=== PATIENT | male | born 1950 | race Caucasian/White ===

== ENCOUNTER 2021-03-15 15:27 | Outpatient (CLI) | payer MEDICARE, BC | END 2021-03-15 15:28 | disposition home or self-care (01) | LOC: COV 15:27 | PROVIDERS: ATTEND Specialist | DX: Z01.812 Encounter for preprocedural laboratory examination (principal); Z20.822 Contact with and (suspected) exposure to COVID-19 ==

== ENCOUNTER 2021-05-11 09:28 | Day surgery (SDC) | payer MEDICARE, BC ==
[2021-05-11] MEDS ORDERED: CEFAZOLIN SODIUM IN 0.9 % NACL 2 GM/100 ML BAG IV ONE (09:30)
[2021-05-11] MEDS ORDERED: LACTATED RINGERS 1,000 ML IV ONE ×2 (09:58→13:50)
[2021-05-11] MEDS ORDERED: BUPIVACAINE 0.25% PF 30 ML VIAL ONE (10:24)
--- NOTE | 2021-05-11 11:03 | ANESTHESIA ---
Pre-Anesthesia VS, & Labs - Diagnosis right inguinal hernia - Procedure right inguinal hernia repair with mesh Vital Signs: Temp Pulse Resp BP Pulse Ox 36.6 C 65 18 118/67 100 05/11/21 09:49 05/11/21 09:49 05/11/21 09:49 05/11/21 09:49 05/11/21 09:49 Height: 5 ft 10 in Weight (kg): 72.2 kg Body Mass Index: 22.8 BMI Classification: Healthy weight - NPO >8 hours Home Medications and Allergies Allergies/Adverse Reactions: Allergies Allergy/AdvReac Type Severity Reaction Status Date / Time No Known Drug Allergies Allergy Verified 05/11/21 09:53 Anes History & Medical History - Anesthetic History Anesthesia Complications: reports: No previous complications - Medical History Cardiovascular: reports: None Pulmonary: reports: None Gastrointestinal: reports: Colon polyps Urinary: reports: None Musculoskeletal: reports: Chronic back pain Endocrine/Autoimmune: reports: None Skin: reports: None Smoking Status: Light tobacco smoker Psychosocial: reports: Alcohol (wine per day) History of Cancer?: No - Surgical History General: reports: Colonoscopy Eyes Ears Nose Throat (EENT): reports: Tonsil/Adenoidectomy Exam General: Alert Dental: WNL Plan Anesthesia Type: MAC, Total IV Consent for Procedure(s) Verified and Reviewed: Yes Code Status: Attempt Resuscitation ASA classification: 1-Healthy patient Is this case an emergency?: No
[2021-05-11] MEDS ORDERED: PROPOFOL 500 MG/50 ML 500 MG/50 ML VIAL ONE (12:14)
--- NOTE | 2021-05-11 12:29 | ANESTHESIA POST OP EVALUATION ---
Anesthesia Post Eval - Post Anesthesia Eval Vitals: Last Vital Signs Temp 36.6 C 05/11/21 09:49 Pulse 65 05/11/21 09:49 Resp 18 05/11/21 09:49 BP 118/67 05/11/21 09:49 Pulse Ox 100 05/11/21 09:49 CV Function Including HR & BP: Stable Pain Control: Satisfactory Nausea & Vomiting: Negative Mental Status: Baseline Respiratory Status: Airway Patent Hydration Status: Satisfactory Anesthesia Complications: None
[2021-05-11] MEDS ORDERED: MIDAZOLAM 2 MG/2 ML VIAL ONE (12:49)
[2021-05-11] MEDS ORDERED: LIDOCAINE 1% 50 ML MDV ONE (12:53)
[2021-05-11] MEDS ORDERED: BUPIVACAINE 0.25% PF 30 ML VIAL SUBQ ONE (13:00)
[2021-05-11] MEDS ORDERED: LIDOCAINE 1% 50 ML MDV SUBQ ONE (13:01)
[2021-05-11] MEDS ORDERED: KETOROLAC 15 MG/ML VIAL ONE (14:06)
[2021-05-11] MEDS ORDERED: oxyCODONE 5 MG TABLET ONE (14:07)
[2021-05-11 14:13] VITALS: BP 120/76
[2021-05-11] MEDS ORDERED: oxyCODONE 5 MG TABLET PO PRN (14:16)
[2021-05-11] MEDS ORDERED: KETOROLAC 15 MG/ML VIAL IVP PRN (14:16)
[2021-05-11] MEDS ORDERED: ACETAMINOPHEN 325 MG TABLET PO PRN (14:16)
--- NOTE | 2021-05-11 15:49 | OPERATIVE REPORT ---
Operative Report - General Planned Procedure: open right inguinal hernia repair without mesh Pre-Op Diagnosis: right inguinal hernia Procedure Performed: open right inguinal hernia repair without mesh Post Op Diagnosis: right inguinal hernia - Procedure Note Primary Surgeon: andrew woods Anesthesia Technique: Local, MAC Pathology: not sent Estimated Blood Loss (mL): 0 Drain/Tube Type: Other (none) Indications: painful hernia bulge Findings: indirect inguinal hernia Complications: none - Other Other Information/Narrative: The patient was properly identified brought to the operating room and placed in supine position. Monitored anesthesia care and IV sedation was given. He was prepped and draped in a sterile fashion and given preoperative antibiotics. Local anesthetic was given throughout the procedure. A 5 cm incision was made right inguinal area. Dissection proceeded with cutting current cautery. The superficial epigastric vein was identified clamped divided and tied with 3-0 Vicryl. Dissection proceeded down to the aponeurosis. This was opened and in the direction of its fibers extending to the external ring. The ilioinguinal nerve was kept with the cord structures. The cord structures were mobilized and brought up. An indirect inguinal hernia was identified and from the cord structures. It was suture ligated with a 2-0 silk. Adipose tissue was mobilized away from the cord structures clamped divided and tied with 2-0 silk. The patient did not want or would not except a mesh hernia repair. A Bassini type repair was performed. Multiple interrupted 0 Ethibond sutures were placed from the shelving border of Poupart's ligament to the conjoined tendon area. The aponeurosis was then closed with a running 2-0 Vicryl suture. Lucinda's was closed with interrupted 3-0 Vicryl suture. Buried interrupted subdermal 3-0 Vicryl sutures were then placed. Skin was closed with a running 4-0 Monocryl subcuticular suture. Dressing was applied. He tolerated the procedure well.
--- NOTE | 2021-05-11 18:09 | ANESTHESIA POST OP EVALUATION ---
Anesthesia Post Eval - Post Anesthesia Eval Vitals: Last Vital Signs Temp 37 C 05/11/21 13:50 Pulse 67 05/11/21 14:10 Resp 14 05/11/21 14:10 BP 120/76 05/11/21 14:10 Pulse Ox 99 05/11/21 14:10 CV Function Including HR & BP: Stable Pain Control: Satisfactory Nausea & Vomiting: Negative Mental Status: Baseline Respiratory Status: Airway Patent Hydration Status: Satisfactory Anesthesia Complications: None
== END 2021-05-11 09:29 | disposition home or self-care (01) ==
LOC: SDS 09:28
PROVIDERS: ATTEND Surgery
DX: K40.90 Unilateral inguinal hernia, without obstruction or gangrene, not specified as recurrent (principal); F17.200 Nicotine dependence, unspecified, uncomplicated
CPT/HCPCS: 49505; A9270; J0690; J7120

== ENCOUNTER 2021-05-20 09:13 | Outpatient (CLI) | payer MEDICARE, BC ==
[2021-05-20 09:55] LABS: BASOPHILS % (AUTO) 0.6 %; EOSINOPHILS # (AUTO) 0.1 10^3/uL (0.0-0.7); EOSINOPHILS % (AUTO) 1.8 %; HCT - HEMATOCRIT 44.7 % (42.0-52.0); HGB - HEMOGLOBIN 15.4 g/dL (14.0-18.0); LYMPHOCYTES # (AUTO) 1.8 10^3/uL (1.5-3.5); LYMPHOCYTES % (AUTO) 36.8 %; MEAN CORPUSCULAR HEMOGLOBIN 34.5 pg (27.0-31.0); MEAN CORPUSCULAR HGB CONC 34.5 g/dL (32.0-36.0); MEAN PLATELET VOLUME 9.2 fL (7.4-11.4); MONOCYTES # (AUTO) 0.5 10^3/uL (0.0-1.0); MONOCYTES % (AUTO) 9.9 %; NEUTROPHILS # (AUTO) 2.5 10^3/uL (1.5-6.6); NEUTROPHILS % (AUTO) 50.7 %; PLT - PLATELET COUNT 255 10^3/uL (130-450); RED BLOOD COUNT 4.47 10^6/uL (4.70-6.10); RED CELL DISTRIBUTION WIDTH 11.9 % (12.0-15.0); WHITE BLOOD COUNT 4.9 x10^3/uL (4.8-10.8)
[2021-05-20 09:58] LABS: ALBUMIN 4.6 g/dL (3.2-5.5); ALBUMIN/GLOBULIN RATIO 1.8 (1.0-2.2); BILIRUBIN,TOTAL 1.2 mg/dL (0.2-1.0); CALCIUM 9.2 mg/dL (8.5-10.3); CREATININE 0.9 mg/dL (0.6-1.2); POTASSIUM 4.3 mmol/L (3.5-5.0); TOTAL PROTEIN 7.2 g/dL (6.7-8.2)
== END 2021-05-20 09:14 | disposition home or self-care (01) ==
LOC: LAB 09:13
PROVIDERS: ATTEND Surgery
DX: K40.90 Unilateral inguinal hernia, without obstruction or gangrene, not specified as recurrent (principal)
CPT/HCPCS: 36415; 80053; 85025

== ENCOUNTER 2021-09-16 10:08 | Outpatient (CLI) | payer MEDICARE, BC ==
--- NOTE | 2021-09-16 17:09 | XRAY Report ---
PROCEDURE: Lumbar Spine 2 View INDICATIONS: LOW BACK PAIN TECHNIQUE: 2 views of the lumbar spine were acquired. COMPARISON: None. FINDINGS: Bones: 5 [id number] vertebrae are present. There is normal bony alignment. No vertebral body compression fractures. No suspicious bony lesions. Moderate L4-L5 degenerative disc disease. Mild L1 -L2, L2-L3, L3-L4 and L5-S1 degenerative disc disease. Moderate L5-S1 facet arthropathy. Mild L4-5 fa cet arthropathy. Soft tissues: Overlying bowel gas pattern is normal. No suspicious soft tissue calcifications. IMPRESSION: 1. Multilevel degenerative disc disease. 2. Multilevel facet arthropathy. 3. No fracture. No acute osseous lesion. If there is continued clinical concern for pathology, then M RI should be considered for further evaluation. Reviewed by: Alida Goetz MD, PhD on 09/16/2021 5:08 PM PST Approved by: Alida Goetz MD, PhD on 09/16/2021 5:08 PM PST Station ID: [id number]
--- NOTE | 2021-09-16 17:10 | XRAY Report ---
PROCEDURE: Thoracic Spine 2 View INDICATIONS: LOW BACK PAIN TECHNIQUE: 3 views of the thoracic spine were acquired. COMPARISON: None. FINDINGS: Bones: No fractures or dislocations. No suspicious bony lesions. 12 pairs of ribs are noted, and a ppear intact where visualized. Degenerative disc changes noted throughout the thoracic spine. Soft tissues: No paravertebral stripe thickening. IMPRESSION: Multilevel degenerative disc disease. 2. No fracture. No acute osseous lesion. If there is continued clinical concern for pathology, then M RI should be considered for further evaluation. Reviewed by: Alida Goetz MD, PhD on 09/16/2021 5:08 PM PST Approved by: Alida Goetz MD, PhD on 09/16/2021 5:08 PM PST Station ID: [id number]
== END 2021-09-16 10:09 | disposition home or self-care (01) ==
LOC: DI 10:08
PROVIDERS: ATTEND Student in an Organized Health Care Education/Training Program
DX: M47.816 Spondylosis without myelopathy or radiculopathy, lumbar region (principal); M47.817 Spondylosis without myelopathy or radiculopathy, lumbosacral region; M51.36 Other intervertebral disc degeneration, lumbar region; M51.37 Other intervertebral disc degeneration, lumbosacral region; M51.34 Other intervertebral disc degeneration, thoracic region

== ENCOUNTER 2023-01-01 17:43 | Inpatient (IN) | payer MEDICARE, BC ==
[2023-01-01 18:13] LABS: BASOPHILS # (AUTO) 0.1 10^3/uL (0.0-0.1); BASOPHILS % (AUTO) 0.4 %; EOSINOPHILS % (AUTO) 0.1 %; HCT - HEMATOCRIT 41.4 % (42.0-52.0); HGB - HEMOGLOBIN 14.7 g/dL (14.0-18.0); LYMPHOCYTES # (AUTO) 1.2 10^3/uL (1.5-3.5); LYMPHOCYTES % (AUTO) 8.3 %; MEAN CORPUSCULAR HEMOGLOBIN 34.7 pg (27.0-31.0); MEAN CORPUSCULAR HGB CONC 35.5 g/dL (32.0-36.0); MEAN CORPUSCULAR VOLUME 97.6 fL (80.0-94.0); MEAN PLATELET VOLUME 9.8 fL (7.4-11.4); MONOCYTES # (AUTO) 0.9 10^3/uL (0.0-1.0); MONOCYTES % (AUTO) 6.5 %; NEUTROPHILS % (AUTO) 84.3 %; PLT - PLATELET COUNT 193 10^3/uL (130-450); RED BLOOD COUNT 4.24 10^6/uL (4.70-6.10); WHITE BLOOD COUNT 14.2 x10^3/uL (4.8-10.8)
[2023-01-01] MEDS ORDERED: HYDROmorphone 1 MG/ML CARPUJECT IVP STA (18:17)
--- NOTE | 2023-01-01 18:18 | ED Physician Documentation ---
PD HPI ABD PAIN - Stated complaint Stated Complaint: ABD PX - Chief complaint Chief Complaint: Abd Pain - History obtained from History obtained from: Patient - Additional information Additional information: 72-year-old gentleman with history of right inguinal hernia repair remotely presents with abdominal pain. Started periumbilical last night and progressed to right lower quadrant. He has vomited once. He has no appetite. Has not had anything to eat or drink today. Sent from the walk-in clinic for concern for appendicitis. PD PAST MEDICAL HISTORY - Past Medical History Past Medical History: Yes Cardiovascular: None Respiratory: None Neuro: None Endocrine/Autoimmune: None GI: Colon polyps : None HEENT: None Psych: None Musculoskeletal: Chronic back pain Derm: None - Past Surgical History Past Surgical History: Yes General: Colonoscopy HEENT: Tonsil/Adenoidectomy - Present Medications Home Medications: Ambulatory Orders Medication Instructions Recorded Confirmed No Known Home Medications 01/01/23 01/01/23 - Allergies Allergies/Adverse Reactions: Allergies Allergy/AdvReac Type Severity Reaction Status Date / Time No Known Drug Allergies Allergy Verified 01/01/23 17:56 - Social History Does the pt smoke?: Yes Smoking Status: Light tobacco smoker - Immunizations Immunizations are current?: Yes PD ED PE NORMAL - Vitals Vital signs reviewed: Yes - General General: Alert and oriented X 3, No acute distress - Abdomen Abdomen: Normal bowel sounds, Soft, Other (Exquisitely tender in the right lower quadrant with positive Rovsing sign. No hernia mass. He does have rebound tenderness.) - Neuro Neuro: Alert and oriented X 3, Normal speech Results - Vitals Vitals: Vital Signs - 24 hr 01/01/23 01/01/23 17:56 18:17 Temperature 36.5 C Heart Rate 90 88 Respiratory 18 16 Rate Blood Pressure 117/74 122/71 O2 Saturation 98 98 Oxygen O2 Source Room air - Labs Labs: Laboratory Tests 01/01/23 01/01/23 18:00 18:00 WBC 14.2 H RBC 4.24 L Hgb 14.7 Hct 41.4 L MCV 97.6 H MCH 34.7 H MCHC 35.5 RDW 12.0 Plt Count 193 MPV 9.8 Neut # (Auto) 12.0 H Lymph # (Auto) 1.2 L [place] # (Auto) 0.9 Eos # (Auto) 0.0 Baso # (Auto) 0.1 Absolute Nucleated RBC 0.00 Nucleated RBC % 0.0 Sodium 135 Potassium 3.4 L Chloride 101 Carbon Dioxide 24 Anion Gap 10.0 BUN 10 Creatinine 0.9 Estimated GFR (MDRD) 83 L Glucose 97 Calcium 8.9 Total Bilirubin 1.4 H AST 12 ALT 15 Alkaline Phosphatase 41 L Total Protein 7.0 Albumin 4.1 Globulin 2.9 Albumin/Globulin Ratio 1.4 Lipase 25 - Rads (name of study) CT abdomen and pelvis Relevant Findings:: Final report received, EMP independent interpretation of test PD Medical Decision Making - ED course ED course: 72-year-old gentleman has clinical appendicitis. He did not want a CAT scan initially and I talked with our surgeon, Dr. SENA prior to performance of the CAT scan she did not feel that she would take the patient to the OR without a CAT scan. CT done showing an enteritis with possible appendicitis and she was consulted again recommends placing observation for serial exams, scheduled Zosyn. She did want the patient admitted to medicine as there is no surgical issue currently. Telehealth consultation for hospitalist admission placed at 7:[address] Lu for observation at 7:40 PM. Departure - Departure Disposition: ED Place in Observation Clinical Impression: Abdominal pain Condition: Stable
[2023-01-01 18:23] LABS: ALBUMIN 4.1 g/dL (3.2-5.5); ALBUMIN/GLOBULIN RATIO 1.4 (1.0-2.2); BILIRUBIN,TOTAL 1.4 mg/dL (0.2-1.0); CALCIUM 8.9 mg/dL (8.5-10.3); CREATININE 0.9 mg/dL (0.6-1.2); POTASSIUM 3.4 mmol/L (3.5-5.0)
[2023-01-01] MEDS ORDERED: iohexoL-300 100 ML VIAL ONE (18:35)
[2023-01-01] MEDS ORDERED: iohexoL-300 100 ML VIAL IVP ONE (19:10)
--- NOTE | 2023-01-01 19:17 | CT Report ---
PROCEDURE: ABDOMEN/PELVIS W INDICATIONS: IV only, right lower quadrant pain CONTRAST: 100mL Omni 300 TECHNIQUE: After the administration of intravenous contrast, 5 mm thick sections acquired from the diaphragms to the symphysis. 5 mm thick coronal and sagittal reformats were acquired. For radiation dose reducti on, the following was used: automated exposure control, adjustment of mA and/or kV according to desire ent size. COMPARISON: FINDINGS: Image quality: Excellent. Lung bases and heart: Unremarkable. Liver: No solid mass. Gallbladder and biliary tree: Gallbladder is within normal limits. No biliary ductal dilatation. Spleen: No splenomegaly. Pancreas: No pancreatic ductal dilation. Adrenals: No adrenal nodule. Kidneys and ureters: No hydronephrosis. No renal cystic lesion which requires follow up. No solid mas s. Bowel and peritoneum: Stomach is nondistended. Multiple mildly distended fluid-filled small bowel loo ps. Thickening of the terminal ileum. The appendix is mildly distended measuring 8 mm. There is mild fat stranding within the right pelvis at the anterior aspect of the index.. Colon is fluid filled and nondistended. Lymph nodes: No central or retroperitoneal adenopathy. Vessels: No infrarenal aortic aneurysm. PELVIS Reproductive organs: Unremarkable. Bladder: No abnormal wall thickening, accounting for underdistension. Pelvic lymph nodes: No pelvic adenopathy by size criteria. Bones: No aggressive osseous abnormality. Other: No significant ventral or inguinal hernia. IMPRESSION: 1. Findings suggestive of gastroenteritis associated with thickening of the terminal ileum. 2. Appendix is mildly enlarged, and may be secondarily inflamed secondary to gastroenteritis. Close c linical follow-up is with repeat imaging if clinically warranted is recommended to exclude developing appendicitis. Reviewed by: Anastacio Parry MD on 01/01/2023 7:16 PM PDT Approved by: Anastacio Parry MD on 01/01/2023 7:16 PM PDT Station ID: [id number]
[2023-01-01] MEDS ORDERED: PIPERACILLIN/TAZOBACTAM 3.375 GM in SODIUM CHLORIDE 0.9% MINIBAG 100 ML IV STA (19:31)
--- NOTE | 2023-01-01 19:45 | HISTORY & PHYSICAL EXAMINATION ---
Chief Complaint - Chief Complaint Chief Complaint: abd pain History of Present Illness - Admitted From Admitted From:: home - History of Present Illness HPI Comment/Other: 72 y/o M presented with abd pain started yesterday concentrated around RUQ. had some nausea and vomiting denies cp, sob or chills or diarrhea or bloody stool History - Past Medical History Cardiovascular: reports: None Respiratory: reports: None Neuro: reports: None Endocrine/Autoimmune: reports: None GI: reports: Colon polyps : reports: None HEENT: reports: None Psych: reports: None Musculoskeletal: reports: Chronic back pain Derm: reports: None MRSA Hx?: No - Past Surgical History General: reports: Colonoscopy HEENT: reports: Tonsil/Adenoidectomy Meds/Allgy - Home Medications Home Medications: Ambulatory Orders Medication Instructions Recorded Confirmed No Known Home Medications 01/01/23 01/01/23 - Allergies Allergies/Adverse Reactions: Allergies Allergy/AdvReac Type Severity Reaction Status Date / Time No Known Drug Allergies Allergy Verified 01/01/23 17:56 Review of Systems - Gastrointestinal Gastrointestinal: reports: Abdominal pain, Nausea, Vomiting Exam - Vital Signs Vital Signs: Vital Signs x48h Temp Pulse Resp BP Pulse Ox 01/01/23 18:17 88 16 122/71 98 01/01/23 17:56 36.5 C 90 18 117/74 98 - Physical Exam General Appearance: positive: No acute distress Eyes Bilateral: positive: Normal inspection Neck: positive: Nml inspection Respiratory: positive: No respiratory distress Cardiovascular: positive: Regular rate & rhythm Abdomen: positive: Tenderness, Guarding Back: positive: Nml inspection Extremities: positive: Nml appearance Neurologic/Psychiatric: positive: Oriented x3 Conclusion/Plan - Lab Results Fish Bones: 01/01/23 18:00 01/01/23 18:00 - Other Other Results/Comments: 72 /o M with abd pain and tenderness suspicious for enteritis or appendicitis discussed with surgeon thinks surgery is not immediately warranted wants admission and antibiotics zosyn,ivf, morphine prn, npo and zofran prn nicolette melendez
[2023-01-01] MEDS ORDERED: SODIUM CHLORIDE FLUSH 0.9% 10 ML SYRINGE IVP PRN (19:58)
--- NOTE | 2023-01-01 20:08 | PROVIDER PROGRESS NOTE ---
Machine Maintenance Technician Note - Machine Maintenance Technician Note Machine Maintenance Technician Note: I performed this consultation using real-deborah telehealth tools including a live video connection between my location and the patient's location. As the provider for this telehealth service, I attest that I introduced myself to the patient and/or the family, provided my credentials, disclosed my location and determined that based on my review of patient's chart and/or discussion with members of the patient's treatment team, telemedicine via real time, 2 way, interactive audio and video platform is an appropriate and effective means of providing service. The patient/family and I mutually agree that this visit is appropriate for telemedicine as well. Patients have been informed of and agreed to telemedicine management by partnership of [facility] and hospital administration, knowing the limitations of telemedicine. Some elements of this visit were assisted with the audiovisual technology and the bedside nurse. Total time is 45 minutes of which greater than 50% was spent in direct patient care. I answered all medical questions to the best of my ability.
[2023-01-01] MEDS: D5NS W/20 MEQ KCL 1,000 ML IV SCH (20:58)
[2023-01-01] MEDS: MORPHINE 2 MG/ML CARPUJECT IVP PRN (21:09)
[2023-01-01 22:33] LABS: GLUCOSE, URINE (UA) NEGATIVE (NEGATIVE); KETONES,URINE (UA) 40 mg/dL (NEGATIVE); LEUKOCYTE ESTERASE, URINE NEGATIVE (NEGATIVE); NITRITE,URINE NEGATIVE (NEGATIVE); OCCULT BLOOD,URINE TRACE-INTA (NEGATIVE); PROTEIN,URINE TRACE mg/dL (NEGATIVE); UROBILINOGEN,URINE 0.2 (NORMAL) E.U./dL (NORMAL)
[2023-01-01 22:41] LABS: BILIRUBIN,URINE NEGATIVE (NEGATIVE); CLARITY,URINE HAZY (CLEAR); ICTOTEST,URINE NEGATIVE
[2023-01-01 22:42] LABS: BACTERIA,URINE None Seen /HPF (None Seen); RBC,URINE None Seen /HPF (0-5); SQUAMOUS EPITHELIAL CELL,UR NONE SEEN (<= Few); WBC,URINE 0-3 /HPF (0-3)
[2023-01-02] MEDS: MORPHINE 2 MG/ML CARPUJECT IVP PRN ×2 (00:21→05:09)
[2023-01-02] MEDS: SODIUM CHLORIDE FLUSH 0.9% 10 ML SYRINGE IVP SCH ×4 (03:00→23:47)
[2023-01-02] MEDS: PIPERACILLIN/TAZOBACTAM 3.375 GM in SODIUM CHLORIDE 0.9% MINIBAG 100 ML IV SCH ×3 (04:18→20:05)
[2023-01-02] MEDS: D5NS W/20 MEQ KCL 1,000 ML IV SCH ×2 (05:54→16:00)
[2023-01-02 08:15] LABS: HCT - HEMATOCRIT 38.3 % (42.0-52.0); HGB - HEMOGLOBIN 13.4 g/dL (14.0-18.0); MEAN CORPUSCULAR HEMOGLOBIN 34.3 pg (27.0-31.0); MEAN PLATELET VOLUME 9.3 fL (7.4-11.4); RED BLOOD COUNT 3.91 10^6/uL (4.70-6.10); WHITE BLOOD COUNT 8.7 x10^3/uL (4.8-10.8)
--- NOTE | 2023-01-02 08:50 | CONSULTATION NOTE ---
Referring Provider Name of Referring Provider:: ED Consult Date: 01/02/23 Chief Complaint - Chief Complaint Chief Complaint: abdominal pain History of Present Illness - Admitted From Admitted From:: ED - History of Present Illness HPI Comment/Other: The patient is a 72-year-old male with a 24-hour history of abdominal pain and emesis. He states that he does not have any diarrhea but has some small hard stools. The pain started in the lower abdomen but is now localized to the right lower quadrant. He did not take any medicine to alleviate the pain at home. He denies any previous episodes of pain. He states he has had a previous colonoscopy approximately 8 years ago but does not know the findings of that colonoscopy. He has a history of a right inguinal hernia repair. He denies any current sick contacts but states that his had abdominal pain approximately 3 weeks ago. He thinks that he does have a history of diverticulitis and avoids nuts. He denies any fever at home. History - Past Medical History Cardiovascular: reports: None Respiratory: reports: None Neuro: reports: None Endocrine/Autoimmune: reports: None GI: reports: Colon polyps : reports: None HEENT: reports: None Psych: reports: None Musculoskeletal: reports: Chronic back pain Derm: reports: None MRSA Hx?: No - Past Surgical History General: reports: Colonoscopy, Other (right inguinal hernia) HEENT: reports: Tonsil/Adenoidectomy Meds/Allgy - Home Medications Home Medications: Ambulatory Orders Medication Instructions Recorded Confirmed No Known Home Medications 01/01/23 01/01/23 - Allergies Allergies/Adverse Reactions: Allergies Allergy/AdvReac Type Severity Reaction Status Date / Time No Known Drug Allergies Allergy Verified 01/01/23 17:56 Review of Systems - Constitutional Constitutional: reports: Fever - Gastrointestinal Gastrointestinal: reports: Abdominal pain, Vomiting - All Other Systems All Other Systems: reports: Reviewed and negative Exam - Vital Signs Reviewed Vital Signs: Yes Vital Signs: Vital Signs x48h Temp Pulse Resp BP Pulse Ox 01/02/23 08:11 101.1 F H 74 16 95/48 L 92 01/02/23 04:17 99.3 F 71 16 104/50 L 92 - Physical Exam General Appearance: positive: No acute distress, Alert Eyes Bilateral: positive: Normal inspection ENT: positive: ENT inspection nml Neck: positive: Nml inspection Respiratory: positive: Chest non-tender, No respiratory distress Cardiovascular: positive: Regular rate & rhythm Peripheral Pulses: positive: 2+ Abdomen: positive: No distention, Tenderness (TTP mostly in the RLQ without peritonitis) Back: positive: Nml inspection Skin: positive: Color nml Extremities: positive: Non-tender Neurologic/Psychiatric: positive: Oriented x3 Conclusion and Plan - Lab Results Laboratory Results 01/02/23 08:10: WBC 8.7, RBC 3.91 L, Hgb 13.4 L, Hct 38.3 L, MCV 98.0 H, MCH 34.3 H, MCHC 35.0, RDW 12.0, Plt Count 142, MPV 9.3 01/01/23 22:27: Urine Color LT. YELLOW, Urine Clarity HAZY, Urine pH 5.0, Ur Specific [place] 1.010, Urine Protein TRACE, Urine Glucose (UA) NEGATIVE, Urine Ketones 40 H, Urine Occult Blood TRACE-INTA, Urine Nitrite NEGATIVE, Urine Bilirubin NEGATIVE, Urine Urobilinogen 0.2 (NORMAL), Ur Leukocyte Esterase NEGATIVE, Urine RBC None Seen, Urine WBC 0-3, Ur Squamous Epith Cells NONE SEEN, Urine Bacteria None Seen, Ur Microscopic Review INDICATED, Urine Culture Co mments NOT INDICATED 01/01/23 18:00: Sodium 135, Potassium 3.4 L, Chloride 101, Carbon Dioxide 24, Anion Gap 10.0, BUN 10, Creatinine 0.9, Estimated GFR (MDRD) 83 L, Glucose 97, Calcium 8.9, Total Bilirubin 1.4 H, AST 12, ALT 15, Alkaline Phosphatase 41 L, Total Protein 7.0, Albumin 4.1, Globulin 2.9, Albumin/Globulin Ratio 1.4, Lipase 25 01/01/23 18:00: WBC 14.2 H, RBC 4.24 L, Hgb 14.7, Hct 41.4 L, MCV 97.6 H, MCH 34.7 H, MCHC 35.5, RDW 12.0, Plt Count 193, MPV 9.8, Neut # (Auto) 12.0 H, Lymph # (Auto) 1.2 L, [place] # (Auto) 0.9, Eos # (Auto) 0.0, Baso # (Auto) 0.1, Absolute Nucleated RBC 0.00, Nucleated RBC % 0.0 - Diagnostic Imaging Results Diagnostic Imaging Results: positive: Final report reviewed, Read independently (limited exam without oral contrast) - Diagnosis Diagnosis: enteritis, possible appendicitis - Plan Plan: IV antibiotics, bowel rest, fluid resuscitation Possible repeat CT with oral contrast if not improving I have discussed with the patient about non surgical management vs possible need for surgery.
[2023-01-02] MEDS: ACETAMINOPHEN 1,000 MG/100 ML 1,000 MG/100 ML BAG IV PRN (09:00)
--- NOTE | 2023-01-02 12:10 | PHARMACY PROGRESS NOTE ---
- Best Possible Medication History Admit Date and Time: 01/01/231957 Processed by: Pharmacy Medication History completed: Yes Patient Interview: Completed Secondary Source(s): Pharmacy records As the person ultimately responsible for medication therapy, providers are able to order a medication from an existing home medication list in [facility] via the "Reconcile Routine" prior to Confirmation of that medication by account support associate. Such practice is discouraged except when the physician, in their clinical judgment, deems that a medical need exists for a medication without regard to previous use.
--- NOTE | 2023-01-02 16:13 | PROVIDER PROGRESS NOTE ---
Assessment/Plan - Problem List (1) Appendicitis Assessment/Plan: The patient had a typical presentation for appendicitis with pain starting periumbilical then spread to the lower quadrant The general surgeon wants him to have bowel rest, IV antibiotics and a conservative approach since operation with surrounding enteritis would create problems with loni, Dr Ortiz told ne today. Plan: Continue with n.p.o. except meds and will allow ice chips Continue with IV antibiotics Cont IV fluids Cont narcotics prn severe pain and will add Ofirmev prn less pain Appreciate General surgery following along with us - Current Meds Current Meds: Current Medications Generic Name Dose Route Start Last Admin Trade Name Freq PRN Reason Stop Dose Admin Potassium Chloride/Dextrose/Sod Cl 1,000 mls @ 100 mls/hr 01/01/23 20:00 01/02/23 05:54 D5ns W/20 Meq Kcl IV 100 mls/hr .Q10H VEE Administration Piperacillin Sod/Tazobactam 100 mls @ 25 mls/hr 01/02/23 04:00 01/02/23 11:38 Sod 3.375 gm/ Sodium Chloride IV 25 mls/hr Q8H VEE Administration Acetaminophen 1,000 mg in 100 mls @ 400 mls/hr 01/02/23 08:15 01/02/23 09:30 Acetaminophen IV Infused Q6HR PRN Infusion Mild Pain or Fever>38C(100.4F) Morphine Sulfate 2 mg 01/01/23 19:58 01/02/23 05:09 Morphine 2 Mg/Ml Carpuject IVP 2 mg Q2HR PRN Administration Pain 8 to 10 Sodium Chloride 10 ml 01/02/23 01:00 01/02/23 08:22 Sodium Chloride Flush 0.9% 10 Ml Syringe IVP Not Given 0100,0900,1700 VEE - Lab Result Fish Bone Diagrams: 01/02/23 08:10 01/01/23 18:00 - Additional Planning My Orders: My Active Orders 01/02/23 Consult [General Surgery Consult] [CONS] Routine 01/02/23 08:15 Acetaminophen 1,000 mg/100 ml [Acetaminophen] 1,000 mg in 100 ml IV Q6HR 01/02/23 09:05 CULTURE, BLOOD #1 [RM] Stat 01/02/23 09:09 CULTURE, BLOOD #2 [RM] Stat Subjective - Subjective Patient Reports: Feeling Better, Resting Comfortably Objective Vital Signs: Vital Signs - 24 hr 01/01/23 01/01/23 01/01/23 17:56 18:17 20:02 Temperature 36.5 C Heart Rate 90 88 84 Heart Rate [ Brachial] Heart Rate [ Monitoring electrodes] Respiratory 18 16 18 Rate Blood Pressure 117/74 122/71 124/71 Blood Pressure [Right Brachial artery] O2 Saturation 98 98 98 01/01/23 01/02/23 01/02/23 20:53 00:28 04:17 Temperature 37.3 C 37.6 C 37.4 C Heart Rate Heart Rate [ 80 71 Brachial] Heart Rate [ 82 Monitoring electrodes] Respiratory 18 16 16 Rate Blood Pressure Blood Pressure 114/61 98/57 L 104/50 L [Right Brachial artery] O2 Saturation 95 93 92 01/02/23 01/02/23 01/02/23 08:11 09:44 13:01 Temperature 38.4 C H 37.3 C 37.5 C Heart Rate Heart Rate [ 74 Brachial] Heart Rate [ 68 Monitoring electrodes] Respiratory 16 16 Rate Blood Pressure Blood Pressure 95/48 L 100/63 [Right Brachial artery] O2 Saturation 92 96 01/02/23 15:44 Temperature 37.8 C Heart Rate Heart Rate [ 72 Brachial] Heart Rate [ Monitoring electrodes] Respiratory 18 Rate Blood Pressure Blood Pressure 97/56 L [Right Brachial artery] O2 Saturation 94 Oxygen O2 Source Room air I&O (Last 24 Hrs): Intake and Output Totals x24h 12/31/22 01/01/23 01/02/23 23:59 23:59 23:59 Intake Total 100 1193.333 Output Total 200 25 Balance -100 1168.333 General: Alert, Oriented x3 HEENT: Mucous membr. moist/pink, Other (Tanned face) Neck: Supple, No JVD Neuro: Alert, Non Focal Cardiovascular: Regular rate, No murmurs Respiratory: No respiratory distress, Breath sounds nml Abdomen: Normal bowel sounds, Soft, Other ((+) tenderness but no rebound right lower quad) Extremities: No clubbing, No edema - Results Results: Laboratory Results WBC 8.7 x10^3/uL (4.8-10.8) 01/02/23 08:10 RBC 3.91 10^6/uL (4.70-6.10) L 01/02/23 08:10 Hgb 13.4 g/dL (14.0-18.0) L 01/02/23 08:10 Hct 38.3 % (42.0-52.0) L 01/02/23 08:10 MCV 98.0 fL (80.0-94.0) H 01/02/23 08:10 MCH 34.3 pg (27.0-31.0) H 01/02/23 08:10 MCHC 35.0 g/dL (32.0-36.0) 01/02/23 08:10 RDW 12.0 % (12.0-15.0) 01/02/23 08:10 Plt Count 142 10^3/uL (130-450) 01/02/23 08:10 MPV 9.3 fL (7.4-11.4) 01/02/23 08:10 Neut # (Auto) 12.0 10^3/uL (1.5-6.6) H 01/01/23 18:00 Lymph # (Auto) 1.2 10^3/uL (1.5-3.5) L 01/01/23 18:00 [place] # (Auto) 0.9 10^3/uL (0.0-1.0) 01/01/23 18:00 Eos # (Auto) 0.0 10^3/uL (0.0-0.7) 01/01/23 18:00 Baso # (Auto) 0.1 10^3/uL (0.0-0.1) 01/01/23 18:00 Absolute Nucleated RBC 0.00 x10^3/uL 01/01/23 18:00 Nucleated RBC % 0.0 /100WBC 01/01/23 18:00 Sodium 135 mmol/L (135-145) 01/01/23 18:00 Potassium 3.4 mmol/L (3.5-5.0) L 01/01/23 18:00 Chloride 101 mmol/L (101-111) 01/01/23 18:00 Carbon Dioxide 24 mmol/L (21-32) 01/01/23 18:00 Anion Gap 10.0 (6-13) 01/01/23 18:00 BUN 10 mg/dL (6-20) 01/01/23 18:00 Creatinine 0.9 mg/dL (0.6-1.2) 01/01/23 18:00 Estimated GFR (MDRD) 83 (>89) L 01/01/23 18:00 Glucose 97 mg/dL (70-100) 01/01/23 18:00 Lactic Acid 0.7 mmol/L (0.5-2.2) 01/02/23 08:45 Calcium 8.9 mg/dL (8.5-10.3) 01/01/23 18:00 Total Bilirubin 1.4 mg/dL (0.2-1.0) H 01/01/23 18:00 AST 12 IU/L (10-42) 01/01/23 18:00 ALT 15 IU/L (10-60) 01/01/23 18:00 Alkaline Phosphatase 41 IU/L (42-121) L 01/01/23 18:00 Total Protein 7.0 g/dL (6.7-8.2) 01/01/23 18:00 Albumin 4.1 g/dL (3.2-5.5) 01/01/23 18:00 Globulin 2.9 g/dL (2.1-4.2) 01/01/23 18:00 Albumin/Globulin Ratio 1.4 (1.0-2.2) 01/01/23 18:00 Lipase 25 U/L (22-51) 01/01/23 18:00 Urine Color LT. YELLOW 01/01/23 22: Urine Clarity HAZY (CLEAR) 01/01/23 22: Urine pH 5.0 PH (5.0-7.5) 01/01/23 22: Ur Specific [place] 1.010 (1.002-1.030) 01/01/23 22: Urine Protein TRACE mg/dL (NEGATIVE) 01/01/23 22: Urine Glucose (UA) NEGATIVE mg/dL (NEGATIVE) 01/01/23 22: Urine Ketones 40 mg/dL (NEGATIVE) H 01/01/23 22: Urine Occult Blood TRACE-INTA (NEGATIVE) 01/01/23 22: Urine Nitrite NEGATIVE (NEGATIVE) 01/01/23 22: Urine Bilirubin NEGATIVE (NEGATIVE) 01/01/23 22: Urine Urobilinogen 0.2 (NORMAL) E.U./dL (NORMAL) 01/01/23 22: Ur Leukocyte Esterase NEGATIVE (NEGATIVE) 01/01/23 22: Urine RBC None Seen /HPF (0-5) 01/01/23 22: Urine WBC 0-3 /HPF (0-3) 01/01/23 22:27 Ur Squamous Epith Cells NONE SEEN (<= Few) 01/01/23 22:27 Urine Bacteria None Seen /HPF (None Seen) 01/01/23 22: Ur Microscopic Review INDICATED 01/01/23 22: Urine Culture Comments NOT INDICATED 01/01/23 22:
[2023-01-03] MEDS: D5NS W/20 MEQ KCL 1,000 ML IV SCH (02:01)
[2023-01-03] MEDS: PIPERACILLIN/TAZOBACTAM 3.375 GM in SODIUM CHLORIDE 0.9% MINIBAG 100 ML IV SCH ×3 (03:52→19:55)
[2023-01-03 05:53] LABS: BASOPHILS % (AUTO) 0.3 %; EOSINOPHILS # (AUTO) 0.1 10^3/uL (0.0-0.7); EOSINOPHILS % (AUTO) 0.9 %; HCT - HEMATOCRIT 37.6 % (42.0-52.0); HGB - HEMOGLOBIN 12.7 g/dL (14.0-18.0); LYMPHOCYTES # (AUTO) 0.8 10^3/uL (1.5-3.5); LYMPHOCYTES % (AUTO) 10.5 %; MEAN CORPUSCULAR HEMOGLOBIN 33.8 pg (27.0-31.0); MEAN CORPUSCULAR HGB CONC 33.8 g/dL (32.0-36.0); MEAN PLATELET VOLUME 9.5 fL (7.4-11.4); MONOCYTES # (AUTO) 0.5 10^3/uL (0.0-1.0); NEUTROPHILS % (AUTO) 80.9 %; PLT - PLATELET COUNT 148 10^3/uL (130-450); RED BLOOD COUNT 3.76 10^6/uL (4.70-6.10); WHITE BLOOD COUNT 7.4 x10^3/uL (4.8-10.8)
[2023-01-03 06:06] LABS: ALKALINE PHOSPHATASE 34 IU/L (42-121); ALT ALANINE AMINOTRANSFERASE 11 IU/L (10-60); AST ASPARTATE AMINOTRANSFERASE < 10 IU/L (10-42); BILIRUBIN,TOTAL 0.8 mg/dL (0.2-1.0); BUN - BLOOD UREA NITROGEN 5 mg/dL (6-20); CALCIUM 8.2 mg/dL (8.5-10.3); CARBON DIOXIDE - CO2 22 mmol/L (21-32); CHLORIDE 112 mmol/L (101-111); CREATININE 0.9 mg/dL (0.6-1.2); GFR - MDRD 83 (>89); GLUCOSE 143 mg/dL (70-100); POTASSIUM 3.7 mmol/L (3.5-5.0); SODIUM 139 mmol/L (135-145)
[2023-01-03] MEDS: SODIUM CHLORIDE FLUSH 0.9% 10 ML SYRINGE IVP SCH ×3 (11:00→23:34)
[2023-01-03] MEDS ORDERED: D5NS W/20 MEQ KCL 1,000 ML IV SCH (11:30)
--- NOTE | 2023-01-03 11:33 | PROVIDER PROGRESS NOTE ---
Subjective - Prog Note Date Prog Note Date: 01/03/23 - Subjective Pt reports feeling: Improved (multiple bms over night. feeling much better. pain and nausea resolved) Objective - Vital Signs/Intake & Output Vital Signs: Vital Signs x48h Temp Pulse Resp BP Pulse Ox 01/03/23 08:00 37.1 C 71 16 93/62 95 Intake & Output: Intake & Output 12/31/22 01/01/23 01/02/23 01/03/23 23:59 23:59 23:59 23:59 Intake Total 100 2193.333 1200 Output Total 200 25 Balance -100 2168.333 1200 - Objective General Appearance: positive: No acute distress, Alert Respiratory: positive: No respiratory distress Abdomen: positive: Non-tender, No distention Neurologic/Psychiatric: positive: Oriented x3 - Lab Results Fish Bones: 01/03/23 05:44 01/03/23 05:44 Other Labs: Lab Results x24hrs 01/03/23 01/03/23 Range/Units 05:44 05:44 WBC 7.4 (4.8-10.8) x10^3/uL RBC 3.76 L (4.70-6.10) 10^6/uL Hgb 12.7 L (14.0-18.0) g/dL Hct 37.6 L (42.0-52.0) % MCV 100.0 H (80.0-94.0) fL MCH 33.8 H (27.0-31.0) pg MCHC 33.8 (32.0-36.0) g/dL RDW 12.0 (12.0-15.0) % Plt Count 148 (130-450) 10^3/uL MPV 9.5 (7.4-11.4) fL Neut # (Auto) 6.0 (1.5-6.6) 10^3/uL Lymph # (Auto) 0.8 L (1.5-3.5) 10^3/uL [place] # (Auto) 0.5 (0.0-1.0) 10^3/uL Eos # (Auto) 0.1 (0.0-0.7) 10^3/uL Baso # (Auto) 0.0 (0.0-0.1) 10^3/uL Absolute Nucleated RBC 0.00 x10^3/uL Nucleated RBC % 0.0 /100WBC Sodium 139 (135-145) mmol/L Potassium 3.7 (3.5-5.0) mmol/L Chloride 112 H (101-111) mmol/L Carbon Dioxide 22 (21-32) mmol/L Anion Gap 5.0 L (6-13) BUN 5 L (6-20) mg/dL Creatinine 0.9 (0.6-1.2) mg/dL Estimated GFR (MDRD) 83 L (>89) Glucose 143 H (70-100) mg/dL Calcium 8.2 L (8.5-10.3) mg/dL Total Bilirubin 0.8 (0.2-1.0) mg/dL AST < 10 L (10-42) IU/L ALT 11 (10-60) IU/L Alkaline Phosphatase 34 L (42-121) IU/L Total Protein 6.0 L (6.7-8.2) g/dL Albumin 3.0 L (3.2-5.5) g/dL Globulin 3.0 (2.1-4.2) g/dL Albumin/Globulin Ratio 1.0 (1.0-2.2) - Diagnostic Imaging Diagnostic Imaging Results: positive: Read independently (enteritis terminal ileum with normal appendix. no inflammatory change around the appendix) Assessment/Plan - Problem List (1) Enteritis Impression: ct scan findings and history and course of illness most consistent with enteritis. he is feeling much improved. ok to slowly advance diet as tolerated. ok to d/c home without antibiotics when tolerated clears and small portions soft foods recommend follow up surgery. he is due for routine colon cancer screening. may be able to evaluate the distal ileum. crohns is unlikely.
--- NOTE | 2023-01-03 16:56 | PROVIDER PROGRESS NOTE ---
Assessment/Plan - Problem List (1) Enteritis Assessment/Plan: The patient had pain starting periumbilical then spread to the lower quadrants then back to center. CT scan was read as having enteritis with possible appendicitis The General Surgeon Dr Ortiz wanted him to have bowel rest, IV antibiotics and a conservative approach since operation on the appendix with surrounding enteritis would create problems. Today the General Surgeon is Dr. Jacobsen and he indicates this is not appendicitis but is enteritis and is improving. Plan: Start and cont advancing his diet, this was okayed today by the general surgeon Dr. Jacobsen Continue with IV antibiotics I will start decreasing the IV fluids Cont narcotics prn severe pain and Tylenol prn pain Appreciate General surgery following along with us Anticipate discharge tomorrow if he remains without any diarrhea and we will change him to oral antibiotics then (2) Hypotension Assessment/Plan: Plan: We will check orthostatic vital signs Plan had been to wean down his IV fluids as he is taking better oral intake and hydration. If he is orthostatic, I will continue the iv fluids another day - Current Meds Current Meds: Current Medications Generic Name Dose Route Start Last Admin Trade Name Freq PRN Reason Stop Dose Admin Piperacillin Sod/Tazobactam 100 mls @ 25 mls/hr 01/02/23 04:00 01/03/23 16:42 Sod 3.375 gm/ Sodium Chloride IV Infused Q8H VEE Infusion Acetaminophen 1,000 mg in 100 mls @ 400 mls/hr 01/02/23 08:15 01/02/23 09:30 Acetaminophen IV Infused Q6HR PRN Infusion Mild Pain or Fever>38C(100.4F) Potassium Chloride/Dextrose/Sod Cl 1,000 mls @ 40 mls/hr 01/03/23 11:30 01/03/23 14:05 D5ns W/20 Meq Kcl IV 01/03/23 23:59 40 mls/hr .Q25H VEE Administration Morphine Sulfate 2 mg 01/01/23 19:58 01/02/23 05:09 Morphine 2 Mg/Ml Carpuject IVP 2 mg Q2HR PRN Administration Pain 8 to 10 Sodium Chloride 10 ml 01/02/23 01:00 01/03/23 16:42 Sodium Chloride Flush 0.9% 10 Ml Syringe IVP Not Given 0100,0900,1700 VEE - Lab Result Fish Bone Diagrams: 01/03/23 05:44 01/03/23 05:44 - Additional Planning My Orders: My Active Orders 01/03/23 11:30 Orthostatic [Vital Signs - Orthostatic] [RC] QSHIFT D5ns W/20 Meq KCl 1,000 ml IV 40 mls/hr 01/03/23 13:55 C DIFF PCR Stat 01/03/23 Dinner DIET [Soft (Low Fiber) Diet] [DIET] Subjective - Subjective Patient Reports: Feeling Better (He had pured then soft foods for lunch and dinner respectively, this did not give him hypermotility but his BMs are mostly formed. He says there was no diarrhea today.) Objective Vital Signs: Vital Signs - 24 hr 01/02/23 01/03/23 01/03/23 20:07 00:24 08:00 Temperature 36.8 C 37.8 C 37.1 C Heart Rate [ 80 85 71 Brachial] Respiratory 18 16 16 Rate Blood Pressure 94/51 L 99/50 L 93/62 [Right Brachial artery] O2 Saturation 96 92 95 Oxygen O2 Source Room air I&O (Last 24 Hrs): Intake and Output Totals x24h 01/01/23 01/02/23 01/03/23 23:59 23:59 23:59 Intake Total 100 2193.333 2890 Output Total 200 25 Balance -100 2168.333 2890 General: Alert, Oriented x3 HEENT: Mucous membr. moist/pink, Other (Disheveled) Neck: Supple, No JVD Neuro: Alert, Non Focal Cardiovascular: Regular rate Respiratory: No respiratory distress Abdomen: Soft, No tenderness, Other (Hyperactive bowel sounds in all 4 quadrant) Extremities: No clubbing, No edema, No tenderness/swelling - Results Results: Laboratory Results WBC 7.4 x10^3/uL (4.8-10.8) 01/03/23 05:44 RBC 3.76 10^6/uL (4.70-6.10) L 01/03/23 05:44 Hgb 12.7 g/dL (14.0-18.0) L 01/03/23 05:44 Hct 37.6 % (42.0-52.0) L 01/03/23 05:44 MCV 100.0 fL (80.0-94.0) H 01/03/23 05:44 MCH 33.8 pg (27.0-31.0) H 01/03/23 05:44 MCHC 33.8 g/dL (32.0-36.0) 01/03/23 05:44 RDW 12.0 % (12.0-15.0) 01/03/23 05:44 Plt Count 148 10^3/uL (130-450) 01/03/23 05:44 MPV 9.5 fL (7.4-11.4) 01/03/23 05:44 Neut # (Auto) 6.0 10^3/uL (1.5-6.6) 01/03/23 05:44 Lymph # (Auto) 0.8 10^3/uL (1.5-3.5) L 01/03/23 05:44 [place] # (Auto) 0.5 10^3/uL (0.0-1.0) 01/03/23 05:44 Eos # (Auto) 0.1 10^3/uL (0.0-0.7) 01/03/23 05:44 Baso # (Auto) 0.0 10^3/uL (0.0-0.1) 01/03/23 05:44 Absolute Nucleated RBC 0.00 x10^3/uL 01/03/23 05:44 Nucleated RBC % 0.0 /100WBC 01/03/23 05:44 Sodium 139 mmol/L (135-145) 01/03/23 05:44 Potassium 3.7 mmol/L (3.5-5.0) 01/03/23 05:44 Chloride 112 mmol/L (101-111) H 01/03/23 05:44 Carbon Dioxide 22 mmol/L (21-32) 01/03/23 05:44 Anion Gap 5.0 (6-13) L 01/03/23 05:44 BUN 5 mg/dL (6-20) L 01/03/23 05:44 Creatinine 0.9 mg/dL (0.6-1.2) 01/03/23 05:44 Estimated GFR (MDRD) 83 (>89) L 01/03/23 05:44 Glucose 143 mg/dL (70-100) H 01/03/23 05:44 Lactic Acid 0.7 mmol/L (0.5-2.2) 01/02/23 08:45 Calcium 8.2 mg/dL (8.5-10.3) L 01/03/23 05:44 Total Bilirubin 0.8 mg/dL (0.2-1.0) 01/03/23 05:44 AST < 10 IU/L (10-42) L 01/03/23 05:44 ALT 11 IU/L (10-60) 01/03/23 05:44 Alkaline Phosphatase 34 IU/L (42-121) L 01/03/23 05:44 Total Protein 6.0 g/dL (6.7-8.2) L 01/03/23 05:44 Albumin 3.0 g/dL (3.2-5.5) L 01/03/23 05:44 Globulin 3.0 g/dL (2.1-4.2) 01/03/23 05:44 Albumin/Globulin Ratio 1.0 (1.0-2.2) 01/03/23 05:44 Lipase 25 U/L (22-51) 01/01/23 18:00 Urine Color LT. YELLOW 01/01/23 22: Urine Clarity HAZY (CLEAR) 01/01/23 22: Urine pH 5.0 PH (5.0-7.5) 01/01/23 22: Ur Specific [place] 1.010 (1.002-1.030) 01/01/23 22:27 Urine Protein TRACE mg/dL (NEGATIVE) 01/01/23 22: Urine Glucose (UA) NEGATIVE mg/dL (NEGATIVE) 01/01/23 22: Urine Ketones 40 mg/dL (NEGATIVE) H 01/01/23 22:27 Urine Occult Blood TRACE-INTA (NEGATIVE) 01/01/23 22: Urine Nitrite NEGATIVE (NEGATIVE) 01/01/23 22: Urine Bilirubin NEGATIVE (NEGATIVE) 01/01/23 22: Urine Urobilinogen 0.2 (NORMAL) E.U./dL (NORMAL) 01/01/23 22:27 Ur Leukocyte Esterase NEGATIVE (NEGATIVE) 01/01/23 22:27 Urine RBC None Seen /HPF (0-5) 01/01/23 22:27 Urine WBC 0-3 /HPF (0-3) 01/01/23 22:27 Ur Squamous Epith Cells NONE SEEN (<= Few) 01/01/23 22:27 Urine Bacteria None Seen /HPF (None Seen) 01/01/23 22:27 Ur Microscopic Review INDICATED 01/01/23 22:27 Urine Culture Comments NOT INDICATED 01/01/23 22:27
[2023-01-03] MEDS: ACETAMINOPHEN 1,000 MG/100 ML 1,000 MG/100 ML BAG IV PRN ×2 (17:20→21:42)
[2023-01-04] MEDS: PIPERACILLIN/TAZOBACTAM 3.375 GM in SODIUM CHLORIDE 0.9% MINIBAG 100 ML IV SCH ×2 (03:49→12:27)
--- NOTE | 2023-01-04 09:11 | Discharge Plan ---
Discharge Plan Problem Reviewed?: Yes Disposition: Home, Self Care Condition: Stable Prescriptions: Ciprofloxacin [Cipro] 500 mg PO Q12H #14 tablet metroNIDAZOLE [Flagyl] 500 mg PO TID #13 tab Diet: Soft (Low fiber, no red meat diet for 1 week, then you can advance to your usual diet as tolerated.) Activity Restrictions: Activity as Tolerated Shower Restrictions: No Driving Restrictions: No Health Concerns: You were hospitalized to manage abdominal pain and your CT imaging showed that you had enteritis and there was suspicion for appendicitis. You were put on IV antibiotics and IV fluids and had bowel rest by being on a clear liquid diet. The final impression is you had no appendicitis but you had enteritis (colitis). This is an inflammation and infection of the bowel wall. You are being discharged home today to take 3 and 1/2 more days of pill antibiotics to treat the colitis. The prescriptions were electronically sent to your [facility] pharmacy in [place]. The General Surgeon, Dr Jacobsen, would like you to see him in 7-10 days in his clinic. Please call [phone] to make an appointment to see him. Remember to eat low fiber foods and no red meat for the next 1 week. You may resume all your other usual pre-hospital medications. Plan of Treatment: As above. Care Goals: Improvement in symptoms and stabilization are the goals. Assessment: The patient understands and is agreeable with the plan. Additional Instructions or Follow Up instructions: If you have new or worsening symptoms, call your Primary CarePprovider, or Dr. Jacobsen's office for advice, or come to the ER. No Smoking: If you smoke, Please STOP! Call for help. Follow-up with: Reji Michel MD [Primary Care Provider] -
--- NOTE | 2023-01-04 09:23 | DISCHARGE SUMMARY ---
Discharge Summary Admit Date: 01/01/23 Discharge Date: 01/04/23 Discharging Provider: Dr Maggy Walden Primary Care Provider: Dr Reji Michel Condition at Discharge: Stable Discharge Disposition: 01 Home, Self Care - HPI History of Present Illness: 72 y/o M presented with abd pain started yesterday concentrated around RUQ. He had some nausea and vomiting, denies cp, sob or chills or diarrhea or bloody stool In ER, WBC elevated at 14.2, normal Lactic Acid level, and CT abd/pelvis found to have gastroenteritis especially of the terminal ileum. Suspicion for appendicitis. General Surgery was contacted who advised conservative treatment with IV fluids, bowel rest, IV antibiotics. He will be admitted to the Hospitalist team. - HOSPITAL COURSE Hospital Course: (1) Enteritis The patient had pain starting periumbilical then spread to the lower quadrants then back to center. CT scan was read as having enteritis with possible appendicitis. The General Surgeon Dr Ortiz wanted him to have bowel rest, IV antibiotics and a conservative approach since operation on the appendix with surrounding enteritis would create problems. He was made n.p.o. except ice chips, received IV Unasyn and IV fluids. His pain and diarrhea decreased. The next General Surgeon, Dr. Jacobsen felt this was not appendicitis but was ent eritis and felt it was improving. Patient was started on clear liquid diet and his diet was advanced which she tolerated. His stool became formed. He was discharged in stable condition to take several more days of Cipro and Flagyl. He called here upon return home stating he refused to take the Cipro due to it's listed side effects. The Cipro was changed to Augmentin plus Flagyl (2) Hypotension BP was running 99-104/50-60's. He was not orthostatic. We weaned down his IV fluids when he was taking better oral intake and hydration. - ALLERGIES Allergies/Adverse Reactions: Allergies Allergy/AdvReac Type Severity Reaction Status Date / Time No Known Drug Allergies Allergy Verified 01/01/23 17:56 - MEDICATIONS Home Medications: Ambulatory Orders Medication Instructions Recorded Confirmed Cholecalciferol (Vitamin D3) 1 cap PO DAILY 01/02/23 01/02/23 [Vitamin D3] Multivitamin with Minerals 1 tab PO DAILY 01/02/23 01/02/23 [Multivitamins with Minerals] Amox/Clav 875/125 [Augmentin 1 tablet PO BID #7 tablet 01/04/23 875/125 Tab] Ciprofloxacin [Cipro] 500 mg PO Q12H #14 tablet 01/04/23 metroNIDAZOLE [Flagyl] 500 mg PO TID #13 tab 01/04/23 - PHYSICAL EXAM AT DISCHARGE General Appearance: positive: No acute distress (BP 100/61, HR 59.), Alert, Other (Disheveled with long hair, and unshaven.) Eyes Bilateral: positive: Normal inspection, EOMI ENT: positive: ENT inspection nml, No signs of dehydration Neck: positive: Nml inspection, No JVD Respiratory: positive: No respiratory distress, Breath sounds nml Cardiovascular: positive: Regular rate & rhythm, No murmur Abdomen: positive: Non-tender, Other (Hyperactive bowel sounds. No guarding or rebound. No organomegaly) Skin: positive: Warm, Dry Extremities: positive: Non-tender, No pedal edema Neurologic/Psychiatric: positive: Oriented x3, Motor nml - LABS Result Diagrams: 01/03/23 05:44 01/03/23 05:44 - DIAGNOSTIC IMAGING Diagnostic Imaging Results: Final report reviewed - FOLLOW UP Follow Up: See PCP after discharge for a hospital follow-up visit. - TIME SPENT Time Spent in Discharge (Minutes): 45
[2023-01-04] MEDS: SODIUM CHLORIDE FLUSH 0.9% 10 ML SYRINGE IVP SCH (10:08)
--- NOTE | 2023-01-04 10:41 | PROVIDER PROGRESS NOTE ---
Subjective - Subjective Pt reports feeling: Improved (feels well. no pain. bowel habits/ stool returning to normal) Objective - Vital Signs/Intake & Output Vital Signs: Vital Signs x48h Temp Pulse Resp BP Pulse Ox 01/04/23 10:38 36.5 C 78 20 115/65 99 01/04/23 07:35 36.6 C 54 L 18 100/61 96 Intake & Output: Intake & Output 01/01/23 01/02/23 01/03/23 01/04/23 23:59 23:59 23:59 23:59 Intake Total 100 2193.333 3675.833 624.167 Output Total 200 25 Balance -100 2168.333 3675.833 624.167 - Objective General Appearance: positive: No acute distress, Alert Respiratory: positive: No respiratory distress Abdomen: positive: Non-tender, No distention Neurologic/Psychiatric: positive: Oriented x3 - Lab Results Fish Bones: 01/03/23 05:44 01/03/23 05:44 Other Labs: Lab Results x24hrs 01/03/23 Range/Units 13:55 Stl C. diff Tox B Gene NEGATIVE (NEGATIVE) - Diagnostic Imaging Diagnostic Imaging Results: positive: Read independently Assessment/Plan - Problem List (1) Enteritis Impression: doing well. agree with care and plan. recommend follow up in the surgery office. he states he will call to make an appt.
[2023-01-04 10:42] VITALS: BP 115/65
== END 2023-01-04 12:20 | disposition home or self-care (01) | DRG 392 ==
LOC: ED 17:43 → MS2 19:58
PROVIDERS: ADMIT Hospitalist; ATTEND Internal Medicine
DX: R10.31 Right lower quadrant pain (principal); R93.3 Abnormal findings on diagnostic imaging of other parts of digestive tract; R11.2 Nausea with vomiting, unspecified; F17.200 Nicotine dependence, unspecified, uncomplicated; K52.9 Noninfective gastroenteritis and colitis, unspecified; D72.829 Elevated white blood cell count, unspecified; I95.9 Hypotension, unspecified
CPT/HCPCS: 36415; 74177; 80053; 81001; 83605; 83690; 85025; 85027; 87040; 87493; 96374; 99284; 99285; J0131; J1170; Q9967; 81003; 87086